=== PATIENT | female | born 1995 | race Caucasian/White ===

== ENCOUNTER 2020-01-04 14:51 | Inpatient (IN) | payer MEDICAID ==
[~2020-01-04] VITALS: Ht 165.1 cm; Wt 101.4 kg
[2020-01-04 15:05] VITALS: BP 120/70
[2020-01-04] MEDS ORDERED: D5%-LACTATED RINGERS 1,000 ML IV SCH (16:09)
[2020-01-04] MEDS ORDERED: OXYTOCIN 30U/ 0.9% NaCL 500ML 500 ML IV ONE (16:09)
[2020-01-04] MEDS ORDERED: MISOPROSTOL 200 MCG TABLET ONE (16:13)
[2020-01-04] MEDS ORDERED: NEWBORN KIT ONE (16:13)
[2020-01-04] MEDS ORDERED: LIDOCAINE 1%, 20ML ONE (16:13)
[2020-01-04] MEDS ORDERED: OXYTOCIN 30U/ 0.9% NaCL 500ML 500 ML ONE (16:13)
[2020-01-04] MEDS ORDERED: FENTANYL PF 100 MCG/2ML ONE ×2 (16:16→23:31)
[2020-01-04] MEDS ORDERED: TERBUTALINE 1 MG/ML, 1ML IVPush PRN (16:30)
[2020-01-04] MEDS ORDERED: SODIUM CITRATE/CITRIC ACID 30 ML UDC PO PRN (16:30)
[2020-01-04] MEDS ORDERED: TERBUTALINE 1 MG/ML, 1ML SQ PRN (16:30)
[2020-01-04] MEDS ORDERED: ONDANSETRON 2MG/ML, 2ML IVPush PRN ×2 (16:30→18:00)
[2020-01-04] MEDS ORDERED: METOCLOPRAMIDE 5 MG/ML, 2ML IVPush PRN (16:30)
[2020-01-04] MEDS ORDERED: FENTANYL PF 100 MCG/2ML IV PRN (16:30)
[2020-01-04] MEDS ORDERED: FENTANYL PF 100 MCG/2ML IVPush PRN (16:30)
[2020-01-04] MEDS ORDERED: FENTANYL/BUPIV./NS/PF 250 ML EPIDCONT SCH ×2 (16:44→17:51)
[2020-01-04 16:49] LABS: BASOPHILS # (AUTO) 0.05 x10^3/uL (0-0.1); BASOPHILS % (AUTO) 0 % (0-1); EOSINOPHILS % (AUTO) 0 % (1-7); LYMPHOCYTES # (AUTO) 1.89 x10^3/uL (1-3.4); LYMPHOCYTES % (AUTO) 17 % (22-44); MD NO; MEAN CORPUSCULAR HEMOGLOBIN 28.7 pg (27.0-34.8); MEAN CORPUSCULAR HGB CONC 33.2 g/dL (32.4-35.8); MEAN CORPUSCULAR VOLUME 86.5 fL (80-100); MEAN PLATELET VOLUME 10.1 fL (7.4-10.4); MONOCYTES # (AUTO) 0.34 x10^3/uL (0.2-0.8); MONOCYTES % (AUTO) 3 % (2-9); NEUTROPHILS # (AUTO) 8.97 x10^3/uL (1.8-6.8); NEUTROPHILS % (AUTO) 80 % (42-75); PLATELET COUNT 214 x10^3/uL (130-400); RED BLOOD COUNT 4.34 x10^6/uL (3.82-5.3); RED CELL DISTRIBUTION WIDTH 15.5 % (9.6-15.2)
[2020-01-04] MEDS ORDERED: EPHEDRINE 50 MG/ML, 1ML IVPush PRN ×2 (17:00→18:00)
[2020-01-04] MEDS ORDERED: LACTATED RINGERS 1,000 ML IVBOLUS PRN ×2 (17:00→18:00)
[2020-01-04] MEDS ORDERED: FENTANYL PF 500 MCG, BUPIVACAINE/PF 0.5%, 30ML 62.5 ML in SODIUM CHLORIDE 0.9% 177.5 ML EPIDCONT SCH (17:09)
[2020-01-04] MEDS ORDERED: BUPIVACAINE 0.25% ONE (17:26)
[2020-01-04] MEDS ORDERED: LACTATED RINGERS 1,000 ML IV SCH (17:51)
[2020-01-04] MEDS ORDERED: NALOXONE 0.4 MG/ML, 1ML IVPush PRN (18:00)
[2020-01-04] MEDS ORDERED: DIPHENHYDRAMINE 50 MG/ML, 1ML IVPush PRN (18:00)
[2020-01-04] MEDS ORDERED: EPHEDRINE 50 MG/ML, 1ML ONE (21:29)
[2020-01-04] MEDS: LACTATED RINGERS 1,000 ML IV SCH (22:01)
[2020-01-04] MEDS: OXYTOCIN 30U/ 0.9% NaCL 500ML 500 ML IV SCH (22:42)
[2020-01-04] MEDS ORDERED: METHYLERGONOVINE 0.2 MG/ML IM PRN (23:00)
[2020-01-04] MEDS ORDERED: ONDANSETRON 2MG/ML, 2ML IV PRN (23:00)
[2020-01-04] MEDS ORDERED: ACETAMINOPHEN 325 MG TABLET PO PRN (23:00)
[2020-01-04] MEDS ORDERED: MISOPROSTOL 200 MCG TABLET PR PRN (23:00)
[2020-01-04] MEDS ORDERED: OXYcodone/APAP 5/325MG TABLET ONE (23:23)
[2020-01-04] MEDS ORDERED: IBUPROFEN 600 MG TABLET ONE (23:24)
[2020-01-04] MEDS: IBUPROFEN 600 MG TABLET PO PRN (23:26)
[2020-01-04] MEDS: OXYcodone/APAP 5/325MG TABLET PO PRN (23:26)
[2020-01-05] MEDS ORDERED: FENTANYL PF 100 MCG/2ML ONE (00:14)
[2020-01-05] MEDS: LACTATED RINGERS 1,000 ML IV SCH ×5 (00:44→18:05)
[2020-01-05] MEDS ORDERED: WATER-INJECTION,STERILE 10 ML IV ONE (00:45)
[2020-01-05] MEDS ORDERED: CEFAZOLIN 1,000 MG ONE (00:45)
[2020-01-05] MEDS ORDERED: ONDANSETRON 2MG/ML, 2ML ONE (00:48)
[2020-01-05] MEDS ORDERED: DEXAMETHASONE 4 MG/ML, 1ML ONE (00:48)
[2020-01-05] MEDS ORDERED: PHENYLEPHRINE 10 MG/ML ONE (00:49)
[2020-01-05] MEDS ORDERED: SODIUM CHLORIDE 0.9% PF 10ML ONE (00:49)
[2020-01-05 01:30] LABS: BASOPHILS # (AUTO) 0.01 x10^3/uL (0-0.1); BASOPHILS % (AUTO) 0 % (0-1); EOSINOPHILS % (AUTO) 0 % (1-7); LYMPHOCYTES # (AUTO) 0.96 x10^3/uL (1-3.4); LYMPHOCYTES % (AUTO) 7 % (22-44); MD NO; MEAN CORPUSCULAR HEMOGLOBIN 29.1 pg (27.0-34.8); MEAN CORPUSCULAR HGB CONC 33.9 g/dL (32.4-35.8); MEAN CORPUSCULAR VOLUME 85.8 fL (80-100); MEAN PLATELET VOLUME 9.6 fL (7.4-10.4); MONOCYTES # (AUTO) 0.53 x10^3/uL (0.2-0.8); MONOCYTES % (AUTO) 4 % (2-9); NEUTROPHILS # (AUTO) 12.09 x10^3/uL (1.8-6.8); NEUTROPHILS % (AUTO) 89 % (42-75); PLATELET COUNT 169 x10^3/uL (130-400); RED BLOOD COUNT 3.32 x10^6/uL (3.82-5.3); RED CELL DISTRIBUTION WIDTH 15.1 % (9.6-15.2)
[2020-01-05] MEDS ORDERED: OMNIPAQUE 350 MG/ML, 100ML BOTTLE ONE (02:12)
[2020-01-05 03:04] LABS: MEAN CORPUSCULAR HEMOGLOBIN 29.2 pg (27.0-34.8); MEAN CORPUSCULAR HGB CONC 33.9 g/dL (32.4-35.8); MEAN CORPUSCULAR VOLUME 86.3 fL (80-100); MEAN PLATELET VOLUME 9.5 fL (7.4-10.4); PLATELET COUNT 176 x10^3/uL (130-400); RED BLOOD COUNT 3.49 x10^6/uL (3.82-5.3); RED CELL DISTRIBUTION WIDTH 15.4 % (9.6-15.2)
[2020-01-05 03:30] LABS: INTERNATIONAL NORMALIZED RATIO 0.95 (0.93-1.1); PROTHROMBIN TIME 10.1 Seconds (9.6-11.5)
[2020-01-05 03:46] LABS: BASOPHILS # (AUTO) 0.02 x10^3/uL (0-0.1); BASOPHILS % (AUTO) 0 % (0-1); EOSINOPHILS % (AUTO) 0 % (1-7); LYMPHOCYTES # (AUTO) 0.75 x10^3/uL (1-3.4); LYMPHOCYTES % (AUTO) 4 % (22-44); MD SCAN; MONOCYTES # (AUTO) 0.46 x10^3/uL (0.2-0.8); MONOCYTES % (AUTO) 3 % (2-9); NEUTROPHILS # (AUTO) 16.04 x10^3/uL (1.8-6.8); NEUTROPHILS % (AUTO) 93 % (42-75)
[2020-01-05] MEDS ORDERED: OXYTOCIN 30U/ 0.9% NaCL 500ML 500 ML ONE (04:18)
[2020-01-05] MEDS: OXYTOCIN 30U/ 0.9% NaCL 500ML 500 ML IV SCH ×2 (04:22→18:42)
[2020-01-05 06:59] LABS: BASOPHILS % (AUTO) 0 % (0-1); EOSINOPHILS % (AUTO) 0 % (1-7); LYMPHOCYTES # (AUTO) 0.83 x10^3/uL (1-3.4); LYMPHOCYTES % (AUTO) 5 % (22-44); MD NO; MEAN CORPUSCULAR HEMOGLOBIN 28.7 pg (27.0-34.8); MEAN CORPUSCULAR HGB CONC 32.7 g/dL (32.4-35.8); MEAN CORPUSCULAR VOLUME 87.8 fL (80-100); MEAN PLATELET VOLUME 9.4 fL (7.4-10.4); MONOCYTES # (AUTO) 0.16 x10^3/uL (0.2-0.8); MONOCYTES % (AUTO) 1 % (2-9); NEUTROPHILS # (AUTO) 15.55 x10^3/uL (1.8-6.8); NEUTROPHILS % (AUTO) 94 % (42-75); PLATELET COUNT 195 x10^3/uL (130-400); RED BLOOD COUNT 3.42 x10^6/uL (3.82-5.3); RED CELL DISTRIBUTION WIDTH 15.9 % (9.6-15.2)
[2020-01-05 07:45] VITALS: BP 103/57
[2020-01-05] MEDS ORDERED: OXYcodone/APAP 5/325MG TABLET ONE ×3 (07:57→19:56)
[2020-01-05] MEDS ORDERED: IBUPROFEN 600 MG TABLET ONE ×2 (07:57→19:56)
[2020-01-05] MEDS: IBUPROFEN 600 MG TABLET PO PRN (07:58)
[2020-01-05] MEDS: OXYcodone/APAP 5/325MG TABLET PO PRN ×4 (07:58→20:02)
[2020-01-05 11:11] LABS: BASOPHILS # (AUTO) 0.03 x10^3/uL (0-0.1); BASOPHILS % (AUTO) 0 % (0-1); EOSINOPHILS % (AUTO) 0 % (1-7); LYMPHOCYTES % (AUTO) 8 % (22-44); MD NO; MEAN CORPUSCULAR HEMOGLOBIN 28.8 pg (27.0-34.8); MEAN CORPUSCULAR VOLUME 87.1 fL (80-100); MEAN PLATELET VOLUME 9.6 fL (7.4-10.4); MONOCYTES # (AUTO) 0.31 x10^3/uL (0.2-0.8); MONOCYTES % (AUTO) 2 % (2-9); NEUTROPHILS # (AUTO) 13.82 x10^3/uL (1.8-6.8); NEUTROPHILS % (AUTO) 90 % (42-75); PLATELET COUNT 190 x10^3/uL (130-400); RED BLOOD COUNT 3.26 x10^6/uL (3.82-5.3); RED CELL DISTRIBUTION WIDTH 15.6 % (9.6-15.2)
[2020-01-05 11:18] LABS: INTERNATIONAL NORMALIZED RATIO 0.93 (0.93-1.1); PROTHROMBIN TIME 9.9 Seconds (9.6-11.5)
[2020-01-05 11:55] VITALS: BP 100/54
[2020-01-05 12:55] VITALS: BP 101/52
[2020-01-05] MEDS ORDERED: PRENATAL VIT/IRON/FA 1 EACH TABLET ONE (14:14)
[2020-01-05] MEDS ORDERED: DOCUSATE 100 MG CAPSULE ONE (14:15)
[2020-01-05] MEDS: DOCUSATE 100 MG CAPSULE PO PRN (14:17)
[2020-01-05] MEDS: PRENATAL VIT/IRON/FA 1 EACH TABLET PO SCH (14:17)
[2020-01-05 20:00] VITALS: BP 114/69
[2020-01-05] MEDS ORDERED: SIMETHICONE 80 MG CHEW TAB ONE (23:02)
[2020-01-05] MEDS: SIMETHICONE 80 MG CHEW TAB PO PRN (23:03)
[2020-01-05 23:30] VITALS: BP 125/68
[2020-01-06] VITALS (7 sets, daily range): BP systolic 112–123; BP diastolic 58–77
[2020-01-06] MEDS: LACTATED RINGERS 1,000 ML IV SCH ×3 (00:44→16:44)
[2020-01-06] MEDS: OXYTOCIN 30U/ 0.9% NaCL 500ML 500 ML IV SCH ×2 (04:42→14:42)
[2020-01-06] MEDS ORDERED: SIMETHICONE 80 MG CHEW TAB ONE ×2 (04:57→11:17)
[2020-01-06] MEDS ORDERED: OMNIPAQUE 350 MG/ML, 100ML BOTTLE ONE (09:51)
[2020-01-06] MEDS: SIMETHICONE 80 MG CHEW TAB PO PRN ×2 (11:20→18:41)
[2020-01-06] MEDS ORDERED: DOCUSATE 100 MG CAPSULE ONE (14:21)
[2020-01-06] MEDS ORDERED: PRENATAL VIT/IRON/FA 1 EACH TABLET ONE (14:21)
[2020-01-06] MEDS: PRENATAL VIT/IRON/FA 1 EACH TABLET PO SCH (14:24)
[2020-01-06] MEDS: DOCUSATE 100 MG CAPSULE PO PRN ×2 (14:25→19:52)
[2020-01-06] MEDS: IBUPROFEN 600 MG TABLET PO PRN (19:51)
[2020-01-06] MEDS: OXYcodone/APAP 5/325MG TABLET PO PRN (19:51)
[2020-01-07] MEDS: OXYTOCIN 30U/ 0.9% NaCL 500ML 500 ML IV SCH ×2 (00:42→10:42)
[2020-01-07] MEDS: LACTATED RINGERS 1,000 ML IV SCH ×2 (00:44→08:44)
[2020-01-07 07:07] LABS: BASOPHILS # (AUTO) 0.02 x10^3/uL (0-0.1); BASOPHILS % (AUTO) 0 % (0-1); EOSINOPHILS # (AUTO) 0.06 x10^3/uL (0-0.4); EOSINOPHILS % (AUTO) 1 % (1-7); LYMPHOCYTES # (AUTO) 2.03 x10^3/uL (1-3.4); LYMPHOCYTES % (AUTO) 26 % (22-44); MD NO; MEAN CORPUSCULAR HEMOGLOBIN 28.8 pg (27.0-34.8); MEAN CORPUSCULAR HGB CONC 32.5 g/dL (32.4-35.8); MEAN CORPUSCULAR VOLUME 88.5 fL (80-100); MEAN PLATELET VOLUME 9.4 fL (7.4-10.4); MONOCYTES # (AUTO) 0.37 x10^3/uL (0.2-0.8); MONOCYTES % (AUTO) 5 % (2-9); NEUTROPHILS # (AUTO) 5.47 x10^3/uL (1.8-6.8); NEUTROPHILS % (AUTO) 69 % (42-75); PLATELET COUNT 192 x10^3/uL (130-400); RED BLOOD COUNT 2.93 x10^6/uL (3.82-5.3)
[2020-01-07] MEDS: IBUPROFEN 600 MG TABLET PO PRN (07:25)
[2020-01-07] MEDS: DOCUSATE 100 MG CAPSULE PO PRN (07:25)
[2020-01-07] MEDS: PRENATAL VIT/IRON/FA 1 EACH TABLET PO SCH (07:26)
[2020-01-07 07:42] VITALS: BP 113/72
[2020-01-07] MEDS ORDERED: IBUP200T49 PO (12:01)
== END 2020-01-07 12:55 | disposition home or self-care (01) | DRG 806 ==
LOC: LDOP 14:51 → LDIP 16:14 → 2NW 01-06 15:33
PROVIDERS: ADMIT Obstetrics & Gynecology; ATTEND Obstetrics & Gynecology
PROC: 10E0XZZ Delivery of Products of Conception, External Approach (ICD-10-PCS; principal; 2020-01-04)
PROC: 0HQ9XZZ Repair Perineum Skin, External Approach (ICD-10-PCS; 2020-01-04)
PROC: 3E0R3BZ Introduction of Anesthetic Agent into Spinal Canal, Percutaneous Approach (ICD-10-PCS; 2020-01-04)
PROC: 00HU33Z Insertion of Infusion Device into Spinal Canal, Percutaneous Approach (ICD-10-PCS; 2020-01-04)
PROC: 0HQ9XZZ Repair Perineum Skin, External Approach (ICD-10-PCS; 2020-01-05)
DX: O70.0 First degree perineal laceration during delivery (principal); O71.7 Obstetric hematoma of pelvis; Z37.0 Single live birth; Z3A.38 38 weeks gestation of pregnancy
CPT/HCPCS: 36415; J3490; S0020; 74177; 85014; 85018; 85025; 85384; 85610; 85730; 86592; 86850; 86900; 86923; G0378; J0690; J1100; J2405; J3010; Q9967; J2370; J2590; J7050; J7120